=== PATIENT | male | born 1970 | race Hispanic/Latino ===

== ENCOUNTER 2020-06-19 11:48 | Inpatient (IN) | payer SELFPAY ==
[~2020-06-19] VITALS: Ht 177.8 cm; Wt 175.2 kg
[2020-06-19 12:18] LABS: BASOPHILS % 0.2 % (0.0-1.0); EOSINOPHILS # (AUTO) 0.2 (0.0-0.4); HEMATOCRIT 38.5 % (38.2-49.6); HEMOGLOBIN 11.9 g/dL (14.0-18.0); LYMPHOCYTES # (AUTO) 1.5 (1.0-3.2); LYMPHOCYTES % 16.8 % (18.0-39.1); MEAN CORPUSCULAR HEMOGLOBIN 28.7 pg (28-32); MEAN CORPUSCULAR HGB CONC 30.9 g/dL (31-35); MEAN CORPUSCULAR VOLUME 92.8 fL (81-99); MONOCYTES # (AUTO) 0.5 (0.2-0.8); MONOCYTES % 5.3 % (4.4-11.3); NEUTROPHILS # (AUTO) 6.5 (2.1-6.9); NEUTROPHILS % 74.8 % (38.7-80.0); PLATELET COUNT 237 x10e3/uL (140-360); RED BLOOD COUNT 4.15 x10e6/uL (4.3-5.7)
[2020-06-19 12:42] LABS: ANION GAP 14.8 mmol/L (8-16); CALCIUM 9.2 mg/dL (8.4-10.2); CREATININE, SERUM 1.36 mg/dL (0.72-1.25); POTASSIUM 4.8 mmol/L (3.5-5.1)
[2020-06-19 12:57] LABS: ALBUMIN 2.8 g/dL (3.5-5.0); ALBUMIN/GLOBULIN RATIO 0.7 (0.8-2.0)
[2020-06-19] MEDS ORDERED: CLINDAMYCIN 600MG / 50ML 50 ML IV STA (16:42)
[2020-06-19] MEDS ORDERED: ASPIRIN 325 MG TAB EC PO STA (16:56)
[2020-06-19] MEDS ORDERED: DEXTROSE 50% SYRINGE 50 ML IV PRN (17:45)
[2020-06-19 18:13] LABS: CLARITY,URINE CLEAR (CLEAR); COLOR,URINE YELLOW (YELLOW); LEUKOCYTE ESTERASE ,URINE NEGATIVE (NEGATIVE); NITRITE,URINE NEGATIVE (NEGATIVE); PROTEIN,URINE DIPSTICK >=300 (NEGATIVE)
[2020-06-19 18:14] LABS: KETONES,URINE NEGATIVE (NEGATIVE); URINE UROBILINOGEN 0.2 mg/dL (0.2 - 1)
[2020-06-19 18:24] LABS: BACTERIA,URINE FEW /HPF
[2020-06-19 18:32] LABS: FREE THYROXINE INDEX 1.8627 (1.4-3.8); THYROID STIMULATING HORMONE 3.244 uIU/mL (0.350-4.940)
[2020-06-19 20:30] VITALS: BP 121/87
[2020-06-19 20:45] VITALS: BP 121/87
[2020-06-19 21:00] VITALS: BP 121/87
[2020-06-19] MEDS: INSULIN LISPRO 100 UNIT/1 ML 3ML VIAL SQ SCH (21:00)
[2020-06-19] MEDS ORDERED: ATORVASTATIN 20 MG TAB PO SCH (21:00)
[2020-06-19] MEDS: ATORVASTATIN 40 MG TAB PO SCH (22:37)
[2020-06-19] MEDS: FENOFIBRATE 145 MG TAB PO SCH (22:37)
[2020-06-19] MEDS: CEFAZOLIN SOD 1 GM/NS 50ML 50 ML IV SCH (22:38)
[2020-06-19] MEDS: ENOXAPARIN SOD INJ 40 MG/0.4 ML SYR SC SCH (22:38)
[2020-06-19] MEDS: INSULIN GLARGINE 100 UNITS/ML VIAL SQ SCH (22:39)
[2020-06-19] MEDS ORDERED: PNEUMOCOCCAL VACCINE POLYVALENT 23 MCG/0.5 ML VIAL IM SCH (22:43)
[2020-06-20] VITALS: BP 141/87
[2020-06-20] MEDS ORDERED: METFORMIN HCL500 MG PO (00:32)
[2020-06-20] MEDS ORDERED: AMLODIPINE BESY10 MG PO (00:32)
[2020-06-20] MEDS ORDERED: ATORVASTATIN CA20 MG PO (00:32)
[2020-06-20] MEDS ORDERED: GLYBURIDE5 MG PO (00:32)
[2020-06-20] MEDS ORDERED: K2 PLUS D3 TAB1 EACH PO (00:32)
[2020-06-20] MEDS ORDERED: NOVOLIN R100 UNIT/1 SC (00:32)
[2020-06-20] MEDS ORDERED: [UNRECOGNIZED DRUG - OTHER] PO (00:32)
[2020-06-20] MEDS ORDERED: FENOFIBRATE145 MG PO (00:32)
[2020-06-20] MEDS ORDERED: PROBIOTIC & AC1 EACH PO (00:32)
[2020-06-20] MEDS ORDERED: MICARDIS80 MG PO (00:32)
[2020-06-20] MEDS ORDERED: MAGNESIUM OXID400 MG PO (00:32)
[2020-06-20 00:38] LABS: CREATINE KINASE MB 1.8 ng/mL (0-5.0)
[2020-06-20 04:00] VITALS: BP 121/82
[2020-06-20 05:14] LABS: BASOPHILS % 0.3 % (0.0-1.0); EOSINOPHILS # (AUTO) 0.3 (0.0-0.4); HEMOGLOBIN 11.2 g/dL (14.0-18.0); LYMPHOCYTES # (AUTO) 1.6 (1.0-3.2); LYMPHOCYTES % 17.4 % (18.0-39.1); MEAN CORPUSCULAR HEMOGLOBIN 28.7 pg (28-32); MEAN CORPUSCULAR HGB CONC 31.1 g/dL (31-35); MEAN CORPUSCULAR VOLUME 92.3 fL (81-99); MONOCYTES # (AUTO) 0.5 (0.2-0.8); MONOCYTES % 5.5 % (4.4-11.3); NEUTROPHILS # (AUTO) 6.6 (2.1-6.9); NEUTROPHILS % 73.2 % (38.7-80.0); PLATELET COUNT 257 x10e3/uL (140-360); RED CELL DISTRIBUTION WIDTH 16.2 % (11.7-14.4)
[2020-06-20] MEDS: CEFAZOLIN SOD 1 GM/NS 50ML 50 ML IV SCH ×2 (05:33→14:00)
[2020-06-20 05:36] LABS: ANION GAP 12.7 mmol/L (8-16); BLOOD UREA NITROGEN 22 mg/dL (7-26); BUN/CREATININE RATIO 21 (6-25); CALCIUM 8.7 mg/dL (8.4-10.2); CARBON DIOXIDE 26 mmol/L (22-29); CHLORIDE 107 mmol/L (98-107); CREATININE, SERUM 1.05 mg/dL (0.72-1.25); EST GLOMERULAR FILTRATION RATE > 60 ML/MIN (60-); GLUCOSE 124 mg/dL (74-118); POTASSIUM 4.7 mmol/L (3.5-5.1); SODIUM 141 mmol/L (136-145)
[2020-06-20 05:54] LABS: CHOL/HDL RATIO 2.7 (3.9-4.7)
[2020-06-20] MEDS: INSULIN LISPRO 100 UNIT/1 ML 3ML VIAL SQ SCH ×4 (07:30→20:00)
[2020-06-20 08:00] VITALS: BP 127/82
[2020-06-20 08:54] VITALS: BP 127/82
[2020-06-20] MEDS ORDERED: FUROSEMIDE INJ 10 MG/ML 2 ML VIAL IV SCH ×2 (09:00→17:00)
[2020-06-20] MEDS: FENOFIBRATE 145 MG TAB PO SCH (09:00)
[2020-06-20] MEDS ORDERED: FENOFIBRATE 145 MG TAB PO SCH (09:00)
[2020-06-20] MEDS: LOSARTAN POTASSIUM 100 MG TAB PO SCH ×2 (09:00→16:46)
[2020-06-20 10:00] LABS: CREATINE KINASE MB 1.7 ng/mL (0-5.0)
[2020-06-20 12:29] VITALS: BP 133/75
[2020-06-20] MEDS ORDERED: MUPIROCIN 2% OINT 22 GM TUBE TOP SCH ×2 (14:00→21:00)
[2020-06-20] MEDS ORDERED: SODIUM CHLORIDE 0.9% 250ML 250 ML ONE (14:29)
[2020-06-20] MEDS ORDERED: BALSAM PERU/CASTOR OIL 60 GM OINT...G. TP SCH (16:00)
[2020-06-20 16:32] VITALS: BP 131/67
[2020-06-20] MEDS: ENOXAPARIN SOD INJ 40 MG/0.4 ML SYR SC SCH (16:46)
[2020-06-20] MEDS ORDERED: ENOXAPARIN SOD INJ 40 MG/0.4 ML SYR SC SCH (17:00)
[2020-06-20] MEDS ORDERED: FUROSEMIDE INJ 10 MG/ML 4 ML VIAL IV SCH (17:00)
[2020-06-20] MEDS ORDERED: CIPRO500 MG PO (17:52)
[2020-06-20] MEDS ORDERED: DOXYCYCLINE HY100 MG PO (17:52)
[2020-06-20] MEDS: ATORVASTATIN 40 MG TAB PO SCH (20:00)
[2020-06-20] MEDS: INSULIN GLARGINE 100 UNITS/ML VIAL SQ SCH (20:00)
== END 2020-06-20 21:18 | disposition home or self-care (01) | DRG 638 ==
LOC: ER 12:43 → ERHOLD 16:56 → MED/SURG 20:11 → OBSVTOIN 06-20 15:15
PROVIDERS: ADMIT Internal Medicine; ATTEND Internal Medicine
DX: E11.69 Type 2 diabetes mellitus with other specified complication (principal); Z68.43 Body mass index [BMI] 50.0-59.9, adult; M86.8X7 Other osteomyelitis, ankle and foot; I10 Essential (primary) hypertension; E66.01 Morbid (severe) obesity due to excess calories; E11.621 Type 2 diabetes mellitus with foot ulcer; Z79.899 Other long term (current) drug therapy; E88.09 Other disorders of plasma-protein metabolism, not elsewhere classified; G47.33 Obstructive sleep apnea (adult) (pediatric); E78.00 Pure hypercholesterolemia, unspecified; Z20.828 Contact with and (suspected) exposure to other viral communicable diseases
CPT/HCPCS: 36415; 71045; 80048; 80053; 80061; 81001; 82044; 82550; 82553; 82948; 83036; 83880; 84436; 84443; 84479; 84484; 85025; 85379; 87400; 93005; 93306; 93970; 94660; 99251; 99284; G0378; J0690; J1650; J1815; J1940; J7050; U0002

== ENCOUNTER 2020-07-26 10:41 | Emergency (ER) | payer SELFPAY ==
[~2020-07-26] VITALS: Ht 177.8 cm; Wt 175.1 kg
[~2020-07-26 10:41] MED LIST: AMLODIPINE BESY10 MG PO; ATORVASTATIN CA20 MG PO; CIPRO500 MG PO; DOXYCYCLINE HY100 MG PO; FENOFIBRATE145 MG PO; GLYBURIDE5 MG PO; K2 PLUS D3 TAB1 EACH PO; MAGNESIUM OXID400 MG PO; METFORMIN HCL500 MG PO; MICARDIS80 MG PO; NOVOLIN R100 UNIT/1 SC; PROBIOTIC & AC1 EACH PO; [UNRECOGNIZED DRUG - OTHER] PO
[2020-07-26 11:14] LABS: BASOPHILS % 0.2 % (0.0-1.0); EOSINOPHILS # (AUTO) 0.2 (0.0-0.4); HEMATOCRIT 39.2 % (38.2-49.6); LYMPHOCYTES # (AUTO) 1.4 (1.0-3.2); LYMPHOCYTES % 16.5 % (18.0-39.1); MEAN CORPUSCULAR HEMOGLOBIN 27.6 pg (28-32); MEAN CORPUSCULAR HGB CONC 30.6 g/dL (31-35); MEAN CORPUSCULAR VOLUME 90.3 fL (81-99); MONOCYTES # (AUTO) 0.5 (0.2-0.8); MONOCYTES % 5.7 % (4.4-11.3); NEUTROPHILS # (AUTO) 6.4 (2.1-6.9); NEUTROPHILS % 75.1 % (38.7-80.0); PLATELET COUNT 240 x10e3/uL (140-360); RED BLOOD COUNT 4.34 x10e6/uL (4.3-5.7); RED CELL DISTRIBUTION WIDTH 16.6 % (11.7-14.4)
[2020-07-26 11:43] LABS: ALANINE AMINOTRANSFERASE 28 IU/L (0-55); ALBUMIN/GLOBULIN RATIO 0.8 (0.8-2.0); ALKALINE PHOSPHATASE 106 IU/L (40-150); ANION GAP 12.9 mmol/L (8-16); BLOOD UREA NITROGEN 27 mg/dL (7-26); BUN/CREATININE RATIO 22 (6-25); CALCIUM 8.8 mg/dL (8.4-10.2); CARBON DIOXIDE 25 mmol/L (22-29); CHLORIDE 103 mmol/L (98-107); CREATINE KINASE 138 IU/L (30-200); CREATININE, SERUM 1.24 mg/dL (0.72-1.25); EST GLOMERULAR FILTRATION RATE > 60 ML/MIN (60-); GLUCOSE 176 mg/dL (74-118); POTASSIUM 4.9 mmol/L (3.5-5.1); SODIUM 136 mmol/L (136-145)
[2020-07-26] MEDS ORDERED: LASIX40 MG PO (12:05)
[2020-07-26 12:40] VITALS: BP 167/85
== END 2020-07-26 12:40 | disposition home or self-care (01) ==
LOC: ER 11:22
DX: R05 Cough (principal); R60.9 Edema, unspecified; I50.9 Heart failure, unspecified; E11.65 Type 2 diabetes mellitus with hyperglycemia; I51.7 Cardiomegaly; I10 Essential (primary) hypertension; E78.5 Hyperlipidemia, unspecified; G47.30 Sleep apnea, unspecified
CPT/HCPCS: 36415; 71045; 80053; 82550; 82553; 83880; 84484; 85025; 99284